=== PATIENT | female | born 1940 | race Caucasian/White ===

== ENCOUNTER 2016-11-20 07:45 | Inpatient (IN) | payer MEDICARE ==
[~2016-11-20] VITALS: Ht 149.9 cm; Wt 56.7 kg
--- NOTE | ~2016-11-20 | CN ---
PATIENT NAME:VICKY YATES MEDICAL RECORD: [id number] : 36 LOCATION:[id number] ADMIT DATE: 11/20/16 ACCOUNT: [id number] CONSULTING PHYSICIAN: BRAD BROWNLEE MD REFERRING PHYSICIAN: ANANDA YATES MD DATE OF CONSULTATION: 11/20/2016 CONSULT REQUESTING PHYSICIAN: Dr. Ananda Yates. REASON FOR CONSULTATION: Acute hypoxic respiratory failure, shortness of breath. HISTORY OF PRESENT ILLNESS: Ms. Yates is a 76-year-old very pleasant lady who is complaining of shortness of breath for the last few days. She has orthopnea and PND got worse last night. Pulse ox was 78% at home. The patient was brought into the ER showed pulmonary edema and significant leukocytosis. She denies any chest pain. She has cough with little whitish color sputum production. There is no wheezing. Denies any night sweats. She is also having dysuria and urinary tract infection symptom. PAST MEDICAL HISTORY: 1. Hypertension. 2. Type 2 diabetes mellitus. 3. History of spinal stenosis. 4. Reduction of root compression. PAST SURGICAL HISTORY: 1. Cholecystectomy. 2. times 2. 3. Ventral hernia repair. 4. Appendectomy. 5. T&A. 6. Carpal tunnel surgery. ALLERGIES: There are no known drug allergies. MEDICATIONS AT HOME: Metformin, glipizide, amlodipine, atenolol, lisinopril and ibuprofen. PERSONAL AND SOCIAL HISTORY: The patient still current everyday smoker. She is a nondrinker. FAMILY HISTORY: Significant for cardiovascular diseases and diabetes in her siblings. REVIEW OF SYSTEMS: GENERAL: The patient is running fever, fatigue and weakness. HEENT: There is some sinus congestion. RESPIRATORY: As in history of present illness. CARDIOVASCULAR: As in history of present illness. GASTROINTESTINAL: Negative. GENITOURINARY: Negative. Other reviews have been negative. PHSYICAL EXAMINATION: CONSULT REPORT [id number] VICKY YATES GENERAL: The patient is sitting in bed. She is not in acute distress. VITAL SIGNS: The pulse ox 88%. HEENT: Conjunctivae are pink. Sclerae nonicteric. NECK: Supple, no JVD. CHEST: Excursion is minimal on both sides. There are bilateral crackles. No wheezing. HEART: Rhythm regular, normal sound, no murmur. ABDOMEN: Soft, bowel sounds present. No hepatosplenomegaly. RECTAL: Deferred. EXTREMITIES: No cyanosis, no clubbing, no pedal edema. SKIN: Warm, normal turgor. CENTRAL NERVOUS SYSTEM: The patient is awake and alert. There is no obvious cranial nerve abnormality. The gait was not tested. CHEST RADIOGRAPH: There is increased interstitial marking bilaterally. OTHER LABORATORY DATA: CBC: WBC is 16.9, hemoglobin 15.2, hematocrit 42.6, platelet count 200. Chemistry shows sodium 126, potassium 3.2, BUN is 17, creatinine is 1, glucose 192. ABG: The pH was 7.40, pCO2 is 41.9, the pO2 is 49, bicarbonate 26.3. IMPRESSION: 1. Acute hypoxic respiratory failure. 2. Possible pneumonia bilaterally, consistent with community-acquired pneumonia. 3. Pulmonary edema consistent to congestive heart failure, possible diastolic dysfunction. 4. Hyponatremia. 5. Hypokalemia. 6. Urinary tract infection. 7. 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 RECOMMENDATIONS: 1. Start on Lasix IV. 2. Potassium replacement. 3. Continue Levaquin IV. 4. Check the proBNP, check the cardiac echo and get the cardiology consultation. Start her albuterol/ipratropium nebulizer, Brovana and budesonide nebulizer. 5. Supplemental oxygen as required. 6. Follow up labs and chest radiograph in the morning. Dr. Yates, thank you for involving me in the care of Ms. Yates. TRANSINT:[id number] Voice Confirmation ID: [id number] DOCUMENT ID: [id number] CONSULT REPORT [id number] VICKY YATES MUSHTAQ MD CC: ANANDA YATES MD [id number] DICTATION DATE: 11/20/161449 AML ANALYST: 11/20/162051 ADM IN [facility] [address] [place] [address]
[~2016-11-20 07:45] MED LIST: GLUCOPHAGE1000 MG PO; GLUCOTROL ER2.5 MG PO; IBUPROFEN600 MG PO; NORVASC10 MG PO; PRINIVIL20 MG PO; TENORMIN100 MG PO
[2016-11-20 08:20] LABS: BASOPHILS 0.1 % (0-2); EOSINOPHILS 3.5 % (0-7); HEMATOCRIT 42.6 % (36.0-48.0); HEMOGLOBIN 15.2 g/dL (12-16); IMMATURE GRANULOCYTES 0.4 % (0-5); LYMPHOCYTES 2.6 % (15-50); MCH 32.3 pg (26.0-34.0); MCHC 35.7 g/dL (31.0-37.0); MCV 90.6 fL (80.0-100.0); MEAN PLATELET VOLUME 9.9 fL (7.4-10.4); MONOCYTES 6.9 % (2-11); NEUTROPHILS 86.5 % (40-80); PLATELET COUNT 200 10x3/uL (130-400); RDW 12.9 % (11.5-14.5); WBC 16.9 10x3/uL (4.8-10.8)
[2016-11-20 08:44] LABS: ALBUMIN 3.5 g/dL (3.4-5.0); ALKALINE PHOSPHATASE 67 U/L (46-116); ALT (SGPT) 23 U/L (10-68); CALC OSMOLALITY 259 mosm/kg (275-300); CALCIUM 9.2 mg/dL (8.5-10.1); CARBON DIOXIDE 27.1 mmol/L (21.0-32.0); CHLORIDE - SERUM 88 mmol/L (98-107); POTASSIUM - SERUM 3.2 mmol/L (3.5-5.1); SODIUM 126 mmol/L (136-145); UREA NITROGEN 17 mg/dL (7-18); eGFR NON AFRICAN AMERICAN 57 mL/min (90-120)
[2016-11-20 08:46] LABS: GLUCOSE 192 mg/dL (74-106)
[2016-11-20 08:49] LABS: TROPONIN-I < 0.017 ng/mL (0.000-0.060)
--- NOTE | 2016-11-20 13:00 | NUR ---
PT WAS RECEIVED BY WHEELCHAIR FROM ANJELICA WEST RN. PT WAS TRANSFERRED TO BED, PT IS VERY FRIENDLY, ALERT AND ORIENTED. SHE STATES THAT SHE IS BEING ADMITTED DUE TO HER BEING VERY SHORT OF BREATH. STATES THAT SHE HAS ALSO HAD A UTI FOR ABOUT 7 DAYS AND HAS BEEN TAKING MACROBID. LUNGS- WITH SOME WHEEZING NOTED BILATERALLY. HEART- RRR. ABD- SOFT NONTENDER. EXT- NO EDEMA. RED SMOOTH PETICHIAE KIND OF RASH NOTED LE ONLY. BED IS LOW, SIDE RAILS UP X 2 AND CALL LIGHT IN REACH. SALINE LOCK NOTED R AC WHICH IS PATENT.
--- NOTE | 2016-11-20 15:15 | NUR ---
DR RUVALCABA IS HERE TO CONSULT. PT IS SITTING UP IN CHAIR. NEW ORDERS NOTED .
[2016-11-20 15:57] LABS: CREATINE KINASE 69 UL (21-215); PRO BNP 1542 pg/mL (0-450)
[2016-11-20 15:58] LABS: TROPONIN-I < 0.017 ng/mL (0.000-0.060)
--- NOTE | 2016-11-20 16:36 | NUR ---
I NOTIFIED DR RUVALCABA ABOUT HER ELEVATED PRO BNP BEING ELEVATED.
--- NOTE | 2016-11-20 17:30 | NUR ---
PT UP TO BATHROOM AND BACK TO SIT IN CHAIR. SHE TOOK HER O2 OFF TO DO THIS. PULSE OX CHECKED AFTER SHE PUT O2 BACK ON. O2 SAT 88-92. I CALLED ZONING ENGINEER, ASHER AND SHE IS GOING TO GET BEDSIDE COMMODE FOR PT.
--- NOTE | 2016-11-20 19:50 | NUR ---
ASSESSMENT PER FLOW SHEET, VS OBTAINED, SALINE LOCK IN RIGHT AC INTACT WITH NO REDNESS OR EDEMA, PT C/O BACK PAIN, INFORMED PT THAT I WILL ADM NORCO FOR PAIN, PT VERBALIZES UNDERSTANDING, PT INFORMS ME SHE WILL BE SLEEPING IN THE CHAIR BECAUSE IT IS EASIER FOR HER TO BREATHE SLEEPING IN THE RECLINER, PT REQUESTED AND SERVED FRESH H20
--- NOTE | 2016-11-20 20:04 | NUR ---
ADM TASIA PO PER MD ORDERS, SEE EMAR, PT DENIES FURTHER NEEDS
--- NOTE | 2016-11-20 20:39 | NUR ---
RESP IN ROOM ADM TREATMENT, PT DENIES NEEDS AT THIS TIME
[2016-11-20 20:43] VITALS: BP 153/53
--- NOTE | 2016-11-20 21:27 | NUR ---
PT EATING LIZZ, SON AT BEDSIDE, ADM 2100 MED PER MD ORDERS, SEE EMAR, INFORMED PT THAT I WILL BE BACK TO DO ADMITTING HISTORY AND MED REC WHEN SHE IS FINISHED EATING, PT VERBALIZES UNDERSTANDING, DENIES NEEDS AT THIS TIME
[2016-11-20 22:06] VITALS: BP 153/53; BMI 25.3
[2016-11-20] MEDS ORDERED: GLUCOPHAGE1000 MG PO (22:24)
[2016-11-20] MEDS ORDERED: GLUCOTROL ER2.5 MG PO (22:24)
[2016-11-20] MEDS ORDERED: PRINIVIL20 MG PO (22:25)
[2016-11-20] MEDS ORDERED: TENORMIN100 MG PO (22:25)
[2016-11-20] MEDS ORDERED: HYDROCHLOROTHIA25 MG PO (22:26)
[2016-11-20] MEDS ORDERED: NORVASC10 MG PO (22:26)
[2016-11-20] MEDS ORDERED: HYDROCODON-ACE1 EAC7 PO (22:27)
[2016-11-20] MEDS ORDERED: WELCHOL625 MG PO (22:31)
--- NOTE | 2016-11-21 00:33 | NUR ---
INFORMED PT AND DR RODRIGUEZ I WAS NOT GOING TO ADM BP MEDS DUE TO HER BP OF 129/49, PT STATES "OH, THANK YOU, I DON'T WANT IT TO BOTTOM OUT", ALSO INFORMED PT THAT I MAY NEED TO CHANGE HER ROOM BECAUSE TELEMETRY WILL NOT ENVELOPE MACHINE OPERATOR IN THAT ROOM, BUT JAYNA LU RN, SQL APPLICATION DEVELOPER WAS NOTIFIED AND IS SUPPOSE TO CALL ME BACK AND LET ME KNOW WHAT WE NEED TO DO, PT VERBALIZES UNDERSTANDING, DENIES NEEDS AT THIS TIME
[2016-11-21 00:35] VITALS: BP 129/49
--- NOTE | 2016-11-21 02:00 | NUR ---
PT UP IN CHAIR, TELEMETRY PLACED, PT DENIES NEEDS AT THIS TIME
--- NOTE | 2016-11-21 02:23 | NUR ---
PT APPLE PACKING HEADER LIGHT, ADM TASIA PO PER MD ORDERS, SEE EMAR, PT DENIES FURTHER NEEDS AT THIS TIME, DR RODRIGUEZ ASLEEP ON COUCH
--- NOTE | 2016-11-21 03:16 | NUR ---
TELEMETRY REPORTS PT'S HR IS 64 AND SINUS RHYTHM
--- NOTE | 2016-11-21 03:35 | NUR ---
PT RESTING IN RECLINER WITH EYES CLOSED, RESP QUIET, NO DISTRESS NOTED, LEFT UNDISTURBED AT THIS TIME, SON ASLEEP ON COUCH
[2016-11-21 05:35] VITALS: BP 117/46
[2016-11-21 06:04] LABS: BASOPHILS 0.2 % (0-2); EOSINOPHILS 7.7 % (0-7); HEMATOCRIT 38.9 % (36.0-48.0); HEMOGLOBIN 13.5 g/dL (12-16); IMMATURE GRANULOCYTES 0.3 % (0-5); LYMPHOCYTES 9.4 % (15-50); MCH 31.8 pg (26.0-34.0); MCHC 34.7 g/dL (31.0-37.0); MCV 91.5 fL (80.0-100.0); MEAN PLATELET VOLUME 10.4 fL (7.4-10.4); MONOCYTES 9.2 % (2-11); NEUTROPHILS 73.2 % (40-80); PLATELET COUNT 179 10x3/uL (130-400); RBC 4.25 10x6/uL (4.00-5.40); RDW 13.2 % (11.5-14.5)
[2016-11-21 06:12] LABS: WBC 9.5 10x3/uL (4.8-10.8)
[2016-11-21 06:25] LABS: CALCIUM 8.6 mg/dL (8.5-10.1); CARBON DIOXIDE 31.2 mmol/L (21.0-32.0); CREATININE - SERUM 1.1 mg/dL (0.6-1.3); MAGNESIUM - SERUM 1.6 mg/dL (1.8-2.4)
--- NOTE | 2016-11-21 06:30 | NUR ---
PT RECEIVING RESP TREATMENT AT THIS TIME, SALINE LOCK FLUSHED, ADM LASIX SIVP PER MD ORDERS, SALINE LOCK FLUSHED, PT DENIES NEEDS AT THIS TIME
[2016-11-21 06:31] LABS: ANION GAP 10.8 mmol/L (8-16)
--- NOTE | 2016-11-21 07:00 | NUR ---
SHIFT REPORT TO CECY MATHEW RN
[2016-11-21 07:30] VITALS: BP 128/43
--- NOTE | 2016-11-21 07:30 | NUR ---
PT IS RECEIVED SITTING UP IN CHAIR. PT STATES THAT SHE SLEPT IN CHAIR LAST NIGHT. STATES THAT SHE CANNOT LIE DOWN DUE TO HER SOB. VSS. SHE GETS UP AND WALKS TO BATHROOM INSTEAD OF USING BEDSIDE COMMODE. SHE GETS SOB WITH WALKING TO BATHROOM. BUT TOLERATES. GEN- AWAKE ANDD ALERT. LUNGS- WITH CRACKLES NOTED UPPER LOBES. HEART- RRR. ABD- SOFT , NT BS+. EXT SHE HAS A RED IRRITATED RASH ON LOWER LEGS. IT DOES NOT ITCH OR HURT. THIS IS THE ONLY PLACE THE RASH IS NOTED. BED IS LOW. SIDE RAILS UP X 2 AND CALL LIGHT IN REACH.
--- NOTE | 2016-11-21 07:50 | NUR ---
PT REQUESTED PAIN MED FOR HER BACK. SHE STATES HER PAIN IS A 9/10. GAVE HER NORCO 5/325 MG
--- NOTE | 2016-11-21 08:51 | NUR ---
PT IS SITTING UP IN CHAIR. SHE OFFERS NO COMPLAINTS. CALL LIGHT IN REACH.
--- NOTE | 2016-11-21 10:45 | NUR ---
PT WAS TAKEN TO X- RAY FOR A CHEST XRAY. SHE WAS TAKEN BY WHEELCHAIR.
--- NOTE | 2016-11-21 11:15 | NUR ---
DR RUVALCABA IS HERE TO SEE PT. I TOLD HIM THAT SHE WAS IN XRAY. HE ASKED IF SHE HAS HAD HER ECHO YET AND I TOLD HIM NO. HE STATES THAT HE WILL WAIT ON RESULTS OF THIS AND THEN COME BACK TO SEE HER.
[2016-11-21 12:05] VITALS: BP 129/43
--- NOTE | 2016-11-21 12:05 | NUR ---
PT AWAKE AND ALERT AND SITTING IN CHAIR AT BEDSIDE GETTING READY TO EAT LUNCH. SKIN W/D. COLOR PINK. PULSE OX 96% ON 9L PER NC WITH OXMISER. PT HAS NO CONCERNS AT THIS TIME.
--- NOTE | 2016-11-21 12:30 | NUR ---
KATHRINE APPIAH LOOKING FOR IV SITE ON PT.
[2016-11-21 13:50] VITALS: Ht 149.9 cm; Wt 56.7 kg
--- NOTE | 2016-11-21 15:40 | NUR ---
PT IS SITTING UP IN CHAIR. LASIX AND PAIN MED GIVEN. PT STATES HER PAIN IS A 9 IN HER BACK. SHE IS NOW GOING TO REST IN CHAIR FOR A WHILE. CALL LIGHT IN REACH.
[2016-11-21 16:10] VITALS: BP 151/53
--- NOTE | 2016-11-21 16:59 | NUR ---
DR BROWNLEE IS HERE TO SEE PT. PT STILL HAS RASH THAT APPEARS WORSE TO ME TODAY ON LOWER LEGS ONLY. HE ORDERED HER METHYLPREDNISOLONE 40 MG IV Q 8H.
--- NOTE | 2016-11-21 19:30 | NUR ---
PM ROUNDS MADE, PT SITTING UP IN RECLINER, INFORMED PT THAT I WILL BE IN SHORTLY TO DO ASSESSMENT, PT VERBALIZES UNDERSTANDING, DENIES NEEDS AT THIS TIME
--- NOTE | 2016-11-21 19:54 | NUR ---
RESP IN ROOM FOR TREATMENT
[2016-11-21 20:42] VITALS: BP 143/71
--- NOTE | 2016-11-21 20:42 | NUR ---
ASSESSMENT PER FLOW SHEET, VS OBTAINED, SALINE LOCK IN LEFT HAND INTACT WITH NO REDNESS OR EDEMA, FLUSHED WITH NO DIFFICULTY, ADM SOLUMEDROL SIVP OVER 4 MINUTES, SALINE LOCK FLUSHED, TELEMETRY IN PLACE, PT REPORTS BM, FLATUS, AND VOIDING WITH NO FREQUENCY OR URGENCY, PT RATES BACK PAIN 6-10/07, PT STATES "AFTER I RECEIVE THIS STERIOD, MY BACK WILL FEEL BETTER", PT DENIES FURTHER NEEDS, DR RODRIGUEZ IN ROOM
--- NOTE | 2016-11-21 20:42 | NUR ---
LATE ENTRY: DR RODRIGUEZ ORDERS TO TURN PT'S O2 DOWN TO 8L AND THEN CHECK O2 SAT IN 1 HOUR
--- NOTE | 2016-11-21 21:14 | NUR ---
ADM 2100 MED PER MD ORDERS, SEE EMAR, PT DENIES NEEDS AT THIS TIME
--- NOTE | 2016-11-21 21:25 | NUR ---
DR RODRIGUEZ LEAVING FOR THE EVENING, REPORTS THAT HE TURNED PT'S O2 DOWN TO 7L AND REQUESTS THAT I CHECK O2 SAT IN 1 HOUR, AND IF THE O2 SAT IS STILL GOOD, I CAN CONTINUE TO LOWER HER O2 DOWN, AND IF HER O2 SAT GETS BELOW 90, TO CALL HIM
--- NOTE | 2016-11-21 22:42 | NUR ---
LATE ENTRY: TURNED O2 DOWN TO 6L
--- NOTE | 2016-11-21 22:42 | NUR ---
PT AWAKE, SALINE LOCK FLUSHED, ADM LASIX SIVP OVER 3 MINUTES, SALINE LOCK FLUSHED, O2 SAT ON 7L OXYMIZER 98%, INFORMED PT I WILL RECHECK O2 SAT WITH VS, PT C/O BACK PAIN, ADM NORCO PO PER MD ORDERS, SEE EMAR, PT REQUESTED AND SERVED JELLO, PUDDING, AND FRESH H20, PT DENIES FURTHER NEEDS, PT CONTINUES SITTING IN RECLINER
[2016-11-22 00:32] VITALS: BP 119/49
--- NOTE | 2016-11-22 00:32 | NUR ---
PT RESTING IN RECLINER WITH EYES CLOSED, AROUSES TO SOFT VERBAL STIMUALTION, VS OBTAINED, O2 SAT 95-96% ON 6L OXYMIZER, INFORMED PT THAT I WILL LEAVE THE O2 AT 6L AT THIS TIME, PT STATES "THAT'S PROBABLY A GOOD IDEA", PT DENIES NEEDS OR PAIN AT THIS TIME
--- NOTE | 2016-11-22 02:02 | NUR ---
PT UP IN ROOM, STATES "I THINK I'M GOING TO TRY AND SLEEP IN THE BED TONIGHT", PT DENIES NEEDS OR PAIN AT THIS TIME
[2016-11-22 03:34] VITALS: BP 121/58
--- NOTE | 2016-11-22 03:34 | NUR ---
PT AWAKE, VS OBTAINED, SALINE LOCK FLUSHED, ADM SOLUMEDROL SIVP OVER 4 MINUTES, SALINE LOCK FLUSHED, PT DENIES NEEDS OR PAIN AT THIS TIME
--- NOTE | 2016-11-22 06:29 | NUR ---
PT AWAKE, LAB LYDIA AM BLOOD WORK, WILL SEE WHAT GLUCOSE LEVEL IS FROM BLOOD DRAW, SALINE LOCK FLUSHED, ADM LASIX SIVP OVER 3-4 MINUTES, SALINE LOCK FLUSHED, PT DENIES NEEDS OR PAIN AT THIS TIME
--- NOTE | 2016-11-22 06:55 | NUR ---
SHIFT REPORT TO CECY MATHEW RN
[2016-11-22 07:22] LABS: HEMATOCRIT 41.1 % (36.0-48.0); HEMOGLOBIN 14.2 g/dL (12-16); LYMPHOCYTES 8.8 % (15-50); MCH 31.5 pg (26.0-34.0); MCHC 34.5 g/dL (31.0-37.0); MCV 91.1 fL (80.0-100.0); MEAN PLATELET VOLUME 10.2 fL (7.4-10.4); NEUTROPHILS 89.4 % (40-80); PLATELET COUNT 182 10x3/uL (130-400); RBC 4.51 10x6/uL (4.00-5.40); RDW 13.2 % (11.5-14.5)
[2016-11-22 07:23] LABS: WBC 6.1 10x3/uL (4.8-10.8)
[2016-11-22 07:38] LABS: ANION GAP 12.9 mmol/L (8-16); CALCIUM 8.7 mg/dL (8.5-10.1); CARBON DIOXIDE 28.9 mmol/L (21.0-32.0); MAGNESIUM - SERUM 1.7 mg/dL (1.8-2.4)
[2016-11-22 07:39] LABS: POTASSIUM - SERUM 3.8 mmol/L (3.5-5.1)
[2016-11-22 08:31] VITALS: BP 151/70
--- NOTE | 2016-11-22 09:00 | NUR ---
PT TO X-RAY BY WHEELCHAIR WITH PORTABLE 02 AT 2 L.
--- NOTE | 2016-11-22 09:46 | NUR ---
* Is the patient Alert and Oriented? Yes 0 * How many steps to enter\exit or inside your home? 1 0 * PCP Dr. Yates 0 * Pharmacy [facility] on [address] 0 * Preadmission Environment Home Alone 0 * ADLs Independent 0 * Equipment Rolling Walker 0 * List name and contact numbers for known caregivers / representatives who currently or will assist patient after discharge: Son - Ananda Yates [phone] 0 * Additional services required to return to the preadmission environment? No 0 * Can the patient safely return to the preadmission environment? Yes 0 * Has this patient been hospitalized within the prior 30 days at any hospital? No Patient Name: VICKY YATES Admission Status: ER Accout number: [id number] Admission Date: 11-20-2016 : 1940 Admission Diagnosis: Attending: ANANDA YATES Current LOS: 2 Anticipated DC Date: 11-24-2016 Planned Disposition: Home Primary Insurance: MEDICARE A & B Discharge Planning Comments: CM met with patient to assess dc plans/needs. Patient states she lives alone and is independent with all ADL's. 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 Her son is Honey Yates. She states she has a seated rolling walker, nebulizer & pulse ox. She states she was not using her nebulizer. At al, she will return home. She is not interested in home health services at this time. Case management will follow and assist as needed. Paper Coating Machine Operator: Carina Mann
--- NOTE | 2016-11-22 11:02 | NUR ---
LEVAQUIN IV D'CD AND ORDERED ORAL LEVAQUIN. ORDER PER DR RODRIGUEZ. ORAL LEVAQUIN AND FLORAGEN GIVEN. PT IS SITTING UP IN BED. I ORDERED HER SOME YOGURT FOR HER REQUESTED.
--- NOTE | 2016-11-22 13:00 | NUR ---
PT WAS CLEANED AND DRESSED. SHE WAS INCONTINENT OF URINE. SHE WAS WASHED. LINENS CHANGED AND CALMOSEPTINE APPLIED. SHE HAD A SMALL BM. BED IS LOW, SIDE RAILS UP X 3 AND CALL LIGHT IN REACH.
--- NOTE | 2016-11-22 17:27 | NUR ---
PT [id number] TO 2120 BY WHEELCHAIR
--- NOTE | 2016-11-22 17:47 | NUR ---
RECIVED TO ROOM 2121.
[2016-11-22 19:00] VITALS: BP 142/47
--- NOTE | 2016-11-22 20:16 | NUR ---
INITIAL ROUNDS COMPLETED AT 1920 RHS. PT DENIED AN DISCOMFORT. ASSESSMENT COMPETED AT 2000 HRS. O2 4LNC. LUNGS DIMINISHED IN BASES BILAT. SKIN BRIGHT RED FROM BILAT KNEES DOWN. AVILA. PALPABLE PERIPHERAL PULSES. PT UP AD ADELA. WILL CONTINUE TO MONITOR. SR UP X2, CALL LIGHT WITHIN REACH.
--- NOTE | 2016-11-22 21:57 | NUR ---
PM MEDS GIVEN. PT SITTING IN RECLNER. DENIES ANY DISCOMFORT. WILL CONTINUE TO MONITOR.
--- NOTE | 2016-11-22 23:09 | NUR ---
NORCO PO GIVEN FOR C/O CHRONIC BACK PAIN. WILL CONTINUE TO MONITOR.
[2016-11-23] VITALS: BP 131/56
--- NOTE | 2016-11-23 00:27 | NUR ---
PT STATEDBACK PIAN AROUND 5-6 AT PRESENT. PT SITTING UP IN THE RECLINER. NO DISTRESS NOTED. WILL CONTINUE TO MONITOR.
--- NOTE | 2016-11-23 02:07 | NUR ---
PT STATED AT 2400 VS THAT SHE IS REFUSING 0400 VS. PT CURRENTLY RESTING WITH EYES CLOSED. RESP EVEN AND REGULAR. SR UP X2, CALL LIGHT WITHIN REACH.
--- NOTE | 2016-11-23 04:30 | NUR ---
PT RESTING WITH EYES CLOSED. RESP EVEN AND REGULAR. SR UP X2, CALL LIGHT WITHIN REACH.
[2016-11-23 05:53] LABS: BASOPHILS 0.2 % (0-2); EOSINOPHILS 3.5 % (0-7); HEMATOCRIT 38.2 % (36.0-48.0); HEMOGLOBIN 12.8 g/dL (12-16); IMMATURE GRANULOCYTES 0.5 % (0-5); MCH 31.1 pg (26.0-34.0); MCHC 33.5 g/dL (31.0-37.0); MCV 92.9 fL (80.0-100.0); MEAN PLATELET VOLUME 10.1 fL (7.4-10.4); MONOCYTES 8.5 % (2-11); NEUTROPHILS 73.3 % (40-80); RBC 4.11 10x6/uL (4.00-5.40)
[2016-11-23 05:54] LABS: PLATELET COUNT 219 10x3/uL (130-400); WBC 12.5 10x3/uL (4.8-10.8)
[2016-11-23 05:59] LABS: ANION GAP 8.7 mmol/L (8-16); CALCIUM 8.9 mg/dL (8.5-10.1); CARBON DIOXIDE 30.8 mmol/L (21.0-32.0); MAGNESIUM - SERUM 1.7 mg/dL (1.8-2.4); POTASSIUM - SERUM 3.5 mmol/L (3.5-5.1)
--- NOTE | 2016-11-23 07:09 | NUR ---
VSS THROUGHOUT NIGHT. PT STATED NORCO HELPED BACK PAIN. AM K+ 3.5. KCL 20MEQ PO GIVEN PER ORDERS. NEEDS MET; WILL CONTINUE TO MONITOR.
[2016-11-23 08:39] VITALS: BP 152/54
--- NOTE | 2016-11-23 08:40 | NUR ---
PT SITTING UP TO CHAIR EATING BREAKFAST DENIES ANY NEEDS
--- NOTE | 2016-11-23 09:29 | NUR ---
ASSESSMENT COMPLETED. DENIES ANY NEEDS. UP IN BEDSIDE CHAIR. NO TELEMERTY, NO IV. O2 AT 4 L/M PER NC. UP AB ADELA. SCDS OFF AT PRESENT TIME WILL MONITOR
[2016-11-23 13:00] VITALS: BP 131/55
[2016-11-23 17:31] VITALS: BP 120/55
--- NOTE | 2016-11-23 18:27 | NUR ---
UP IN BEDSIDE CHAIR, C/O PAIN,PAIN MED GIVEN. NO OTHER NEEDS VOICED
[2016-11-23 19:00] VITALS: BP 175/56
--- NOTE | 2016-11-23 21:17 | NUR ---
SPO2 AT REST 91% WITH HR 80. AMBULATING SP02 86% WITH HR 82.
--- NOTE | 2016-11-23 22:23 | NUR ---
INITIAL ROUNDS COMPLETED AT 1915 HRS. PT WATCHING TV. NO DISTRESS NOTED. ASSESSMENT COMPLETED AT 202 5 HRS. VSS. LUNGS DIMINISHED IN BASES BILAT. RED RASH NOTED TO BILAT LOWER EXTREMITIES. PT AMBULATED WITHOUT O2 PER RT WITH O2 SAT 86%. PT PLACED ON O2 2NC AFTER. PM MEDS GIVEN. PT CURRENTLY WATCHING TV IN BED. WILL CONTINUE TO MONITOR. SR UP X2, CALL LIGHT WITHIN REACH.
[2016-11-24] VITALS: BP 115/52
--- NOTE | 2016-11-24 00:41 | NUR ---
PT AWAKE, NO DISTRESS NOTED. WILL CONTINUE TO MONITOR.
--- NOTE | 2016-11-24 02:10 | NUR ---
PT RESTING WITH EYES CLOSED. IN ADRIANO RECLINER. RESP EVEN AND REGULAR. CALL LIGHT WITHIN REACH.
[2016-11-24 04:00] VITALS: BP 120/51
[2016-11-24 04:53] LABS: BASOPHILS 0.5 % (0-2); EOSINOPHILS 17.9 % (0-7); HEMATOCRIT 43.1 % (36.0-48.0); HEMOGLOBIN 14.8 g/dL (12-16); IMMATURE GRANULOCYTES 0.5 % (0-5); LYMPHOCYTES 24.5 % (15-50); MCH 32.2 pg (26.0-34.0); MCHC 34.3 g/dL (31.0-37.0); MCV 93.7 fL (80.0-100.0); MEAN PLATELET VOLUME 9.6 fL (7.4-10.4); MONOCYTES 8.4 % (2-11); NEUTROPHILS 48.2 % (40-80); PLATELET COUNT 230 10x3/uL (130-400); RDW 13.2 % (11.5-14.5); WBC 9.5 10x3/uL (4.8-10.8)
--- NOTE | 2016-11-24 04:55 | NUR ---
PT RESTING WITH EYES CLOSED. RESP EVEN AND REGULAR. CALL LIGHT WITHIN REACH.
[2016-11-24 05:07] LABS: CARBON DIOXIDE 31.5 mmol/L (21.0-32.0); CREATININE - SERUM 1.1 mg/dL (0.6-1.3); MAGNESIUM - SERUM 1.5 mg/dL (1.8-2.4); POTASSIUM - SERUM 3.5 mmol/L (3.5-5.1)
--- NOTE | 2016-11-24 06:26 | NUR ---
VSS THROUGHOUT NIGHT. PT STATED NORCO HELPED CONTROL PAIN. AM K+ 3.5. KCL PO GIVEN PER ELECTROLYTE PROTOCOL. NEEDS MET; WILL CONTINUE TO MONITOR.
--- NOTE | 2016-11-24 07:43 | NUR ---
ASSESSMENT COMPLETED. UP IN CHAIR. DENIES ANY NEEDS. 02 AT 2 L/M PER NC. AWAKE AND ALERT. UP AB ADELA. WILL MONITOR
[2016-11-24 07:58] VITALS: BP 123/55
[2016-11-24 11:54] VITALS: BP 129/53
--- NOTE | 2016-11-24 14:48 | NUR ---
UP IN HALLWAY, DENIES ANY SHORTNESS OF BREAT, WILL MONITOR
[2016-11-24 16:12] VITALS: BP 128/56
[2016-11-24 20:00] VITALS: BP 146/61
--- NOTE | 2016-11-24 20:00 | NUR ---
PT RESTING IN BED AND WATCHING TV. ALERT/ORIENED. PLAN OF CARE REVIEWED. NO IV ACCESS. NO TELMETRY. SUPPOSED TO GO HOME IN AM IF O2 IS SET UP. SEE ASSESSMENT AND CPOC.
[2016-11-25 04:00] VITALS: BP 134/58
--- NOTE | 2016-11-25 05:14 | NUR ---
PT HAS SLEPT THIS NIGHT. SHE DID REFUSE THE LASIX SCHEDULED IN THE MIDDLE OF THE NIGHT.
[2016-11-25 06:28] LABS: BASOPHILS 0.5 % (0-2); EOSINOPHILS 19.2 % (0-7); HEMATOCRIT 41.5 % (36.0-48.0); IMMATURE GRANULOCYTES 1.1 % (0-5); LYMPHOCYTES 22.1 % (15-50); MCH 31.5 pg (26.0-34.0); MCHC 33.7 g/dL (31.0-37.0); MCV 93.5 fL (80.0-100.0); MONOCYTES 8.5 % (2-11); NEUTROPHILS 48.6 % (40-80); PLATELET COUNT 252 10x3/uL (130-400); RBC 4.44 10x6/uL (4.00-5.40); RDW 13.2 % (11.5-14.5)
[2016-11-25 06:57] LABS: ANION GAP 13.1 mmol/L (8-16); CALCIUM 8.6 mg/dL (8.5-10.1); CARBON DIOXIDE 27.7 mmol/L (21.0-32.0); CREATININE - SERUM 1.1 mg/dL (0.6-1.3); MAGNESIUM - SERUM 1.4 mg/dL (1.8-2.4); POTASSIUM - SERUM 3.8 mmol/L (3.5-5.1)
--- NOTE | 2016-11-25 07:24 | NUR ---
ASSESSMENT DONE. DENIES NEEDS.
[2016-11-25 08:00] VITALS: BP 141/85
--- NOTE | 2016-11-25 10:02 | NUR ---
UP IN CHAIR WITH CALL LIGHT IN REACH. RESP UL ON . WILL CONT. PLAN OF CARE.
[2016-11-25 12:00] VITALS: BP 147/63
--- NOTE | 2016-11-25 13:14 | NUR ---
Patient Name: VICKY RODRIGUEZ Encounter No: [id number] : 1940 Primary Insurance: MEDICARE A & B Anticipated DC Date: 11-24-2016 Planned Disposition: Home DCP follow-up note: CM RECEIVED DISCHARGE ORDER, MET WITH PT IN ROOM TO DISCUSS DISCHARGE PLAN AND NEEDS. PT REPORTS SHE WOULD LIKE HER OXYGEN FROM [facility] IT IS CLOSE TO HER HOME. CM EXPLAINED NEED FOR NEW OXYGEN TESTING. CM DISCUSSED AVAILABILITY OF REHAB AND HOME HEALTH, PT DENIES NEED OF BOTH, WILL BE GOING HOME ALONE, PT'S SON WILL PICK HER UP AFTER HE GETS OFF WORK AFTER NOON TODAY. IMPORTANT MESSAGE FROM MED[employer] PROVIDED AND EXPLAINED. CM RECEIVED OXYGEN TESTING, FAXED DOCUMENTS TO [facility] AT [phone]; CM CALLED [facility], , NOTIFIED LUCIA OF REFERRAL. CM RECEIVED CALL FROM LUCIA WHO ADVISED THAT CHART DOCUMENTATION IS NOT ENOUGH, MEDICARE REQUIRES FACE TO FACE DR'S NOTE FROM TODAY WILL NEED TO HAVE PT'S OXYGEN TESTING IN IT ALONG WITH MENTION OF NEED OF HOME OXYGEN FOR DIAGNOSIS OF COPD. CM NOTIFIED DR. RODRIGUEZ IN CLINIC. DR. RODRIGUEZ ENTERED REQUESTED DOCUMENTATION AND ORDER FOR OVERNIGHT PULSE OXIMETRY TESTING. CM FAXED DOCUMENTATION AND ORDER TO [facility] AT [phone]. [facility] DELIVERING PORTABLE OXYGEN TO PT'S ROOM FOR DISCHARGE HOME AND WILL ARRANGE OVERNIGHT PULSE OXIMETRY TESTING WITH PT. PT NOTIFIED, IN AGREEMENT WITH DISCHARGE PLAN. Justin Mcduffie, CASE MANAGEMENT
[2016-11-25] MEDS ORDERED: LEVAQUIN750 MG PO (14:16)
[2016-11-25] MEDS ORDERED: IPRAT-ALBUT 0.5-3 ML UPD (14:19)
[2016-11-25] MEDS ORDERED: PULMICORT0.5 MG/21 INH (14:23)
[2016-11-25] MEDS ORDERED: BROVANA15 MCG/2 M INH (14:23)
--- NOTE | 2016-11-25 14:56 | NUR ---
DC GIVEN TO PT
--- NOTE | 2016-11-25 14:59 | NUR ---
DC HOME PER PERSONAL CAR
--- NOTE | 2016-11-25 15:09 | NUR ---
Patient Name: VICKY RODRIGUEZ Admission Status: ER Accout number: [id number] Admission Date: 11-20-2016 : 1940 Admission Diagnosis: Attending: DARWIN RODRIGUEZ Current LOS: 5 Anticipated DC Date: 11-25-2016 Planned Disposition: Home Primary Insurance: MEDICARE A & B LATE ENTRY: Discharge Planning Comments: CM RECEIVED REQUEST TO SEE PT IN ROOM. CM MET WITH PT WHO IS IN ROOM WITH HER PORTABLE OXYGEN FROM [facility]. PT REPORTS THAT SHE IS UNHAPPY WITH [facility]. THEY DELIVERED AND ETANK AND SHOWER CHAIR AND WHEN SHE ASKED FOR MORE PORTABLE OXGYEN SHE WAS TOLD THAT NO MORE WOULD BE DELIVERED. PT ASKED IF THAT WAS STANDARD, CM STATED HE WOULD CALL AND CHECK. CM CALLED [facility] FROM PT'S ROOM, , SPOKE TO LUCIA. CM ASKED ABOUT WHAT OTHER TANKS PT WOULD BE PROVIDED. LUCIA INFORMED CM THAT PT WOULD ONLY BE PROVIDED THE ONE ETANK AND WHEN IT RUNS OUT SHE IS TO COME TO [facility] FOR A REFILL. CM ASKED ABOUT HAVING AT LEAST ONE MORE FOR EMERGENCY USE, LUCIA AGAIN REPEATED THAT UNTIL PT HAS THE OVERNIGHT AND MIGHT QUALIFY FOR A HOME CONCENTRATOR, THAT IS ALL THAT WOULD BE PROVIDED, THE ONE ETANK. PT REPORTS THAT IS NOT ACCEPTABLE TO HER AND WOULD LIKE FOR CM TO ARRANGE HER WITH SOMEONE ELSE BESIDES [facility]. PT REPORTS SHE WILL GO HOME WITH [facility] ETANK AND TELL THEM TO COME GET IT ONCE ANOTHER COMPANY COMES OUT WITH REPLACEMENT. CM DISCUSSED AVAILABLE COMPANIES, PT WOULD LIKE TO TRY [facility] ON [address]. CM CALLED [facility] [place], , EXPLAINED ABOVE, MARICRUZ REPORTED THAT [facility] [place] WILL DELIVER AND ETANK WELL SMALL PORTABLES TO PT'S HOME UNTIL OVERNIGHT PULSE OXIMETERY CAN BE DONE; [facility] [place] CAN DO THE OVERNIGHT PULSE OXIMETRY TESTING. CM FAXED ENTIRE ORDER WITH DOCUMENTATION TO [facility] [place] AT [phone]. PT NOTIFIED. PT IN AGREEMENT WITH DISCHARGE PLAN AND WILL GO HOME WITH [facility] PORTABLE AND CALL [facility] TO CODING SUPPORT SPECIALIST THE ETANK ONCE [facility] MAKES HOME DELIVERY. DR. RODRIGUEZ NOTIFIED. JEANNIE MANDEL, CASE MANAGEMENT
== END 2016-11-25 15:00 | disposition home or self-care (01) | DRG 189 ==
LOC: D.ER 07:45 → D.SDCHOLD 09:52 → D.LD 09:52 → D.SDCHOLD 11-21 21:14 → D.LD 11-21 21:15 → D.M2 11-22 17:45
PROVIDERS: Emergency Medicine; Internal Medicine Pulmonary Disease; ADMIT Obstetrics & Gynecology
DX: J96.01 Acute respiratory failure with hypoxia (principal); J18.9 Pneumonia, unspecified organism; J44.0 Chronic obstructive pulmonary disease with (acute) lower respiratory infection; I50.30 Unspecified diastolic (congestive) heart failure; E87.1 Hypo-osmolality and hyponatremia; N39.0 Urinary tract infection, site not specified; J44.1 Chronic obstructive pulmonary disease with (acute) exacerbation; I11.0 Hypertensive heart disease with heart failure; M41.9 Scoliosis, unspecified; L27.0 Generalized skin eruption due to drugs and medicaments taken internally; T37.8X5A Adverse effect of other specified systemic anti-infectives and antiparasitics, initial encounter; E87.6 Hypokalemia; E11.9 Type 2 diabetes mellitus without complications

== ENCOUNTER → 2017-03-04 08:25 | Outpatient (CLI) | payer MEDICARE ==
[2016-11-21 13:50] VITALS: BMI 25.2
[~2017-03-04 08:25] MED LIST changes: +BROVANA15 MCG/2 M INH; +HYDROCHLOROTHIA25 MG PO; +HYDROCODON-ACE1 EAC7 PO; +IPRAT-ALBUT 0.5-3 ML UPD; +LEVAQUIN750 MG PO; +PULMICORT0.5 MG/21 INH; +WELCHOL625 MG PO
[2017-03-04 10:30] LABS: BASOPHILS 0.5 % (0-2); EOSINOPHILS 2.9 % (0-7); HEMATOCRIT 39.9 % (36.0-48.0); HEMOGLOBIN 13.9 g/dL (12-16); IMMATURE GRANULOCYTES 0.3 % (0-5); MCH 31.9 pg (26.0-34.0); MCHC 34.8 g/dL (31.0-37.0); MCV 91.5 fL (80.0-100.0); MEAN PLATELET VOLUME 9.2 fL (7.4-10.4); MONOCYTES 7.6 % (2-11); NEUTROPHILS 70.7 % (40-80); PLATELET COUNT 273 10x3/uL (130-400); RBC 4.36 10x6/uL (4.00-5.40); RDW 13.4 % (11.5-14.5); WBC 9.1 10x3/uL (4.8-10.8)
[2017-03-04 10:46] LABS: ANION GAP 11.9 mmol/L (8-16); CALCIUM 9.3 mg/dL (8.5-10.1); CARBON DIOXIDE 27.5 mmol/L (21.0-32.0); CREATININE - SERUM 1.1 mg/dL (0.6-1.3); POTASSIUM - SERUM 3.4 mmol/L (3.5-5.1)
== END | disposition home or self-care (01) ==
LOC: D.RT 08:25
PROVIDERS: Internal Medicine Pulmonary Disease
DX: J44.9 Chronic obstructive pulmonary disease, unspecified (principal)

== ENCOUNTER → 2017-06-27 11:24 | Outpatient (CLI) | payer MEDICARE ==
[2016-11-21 13:50] VITALS: BMI 25.2
== END | disposition home or self-care (01) ==
LOC: D.RAD 11:24
DX: J18.9 Pneumonia, unspecified organism (principal)

== ENCOUNTER → 2017-09-26 13:54 | Outpatient (CLI) | payer MEDICARE ==
[2016-11-21 13:50] VITALS: BMI 25.2
== END | disposition home or self-care (01) ==
LOC: D.RAD 13:54
DX: J44.9 Chronic obstructive pulmonary disease, unspecified (principal)

== ENCOUNTER → 2017-10-09 18:49 | Outpatient (CLI) | payer MEDICARE ==
[2016-11-21 13:50] VITALS: BMI 25.2
== END | disposition home or self-care (01) ==
LOC: D.LABREF 18:49
DX: M17.11 Unilateral primary osteoarthritis, right knee (principal); Z11.8 Encounter for screening for other infectious and parasitic diseases

== ENCOUNTER → 2018-01-23 14:51 | Outpatient (CLI) | payer MEDICARE ==
[2016-11-21 13:50] VITALS: BMI 25.2
== END | disposition home or self-care (01) ==
LOC: D.LABREF 14:51
PROVIDERS: Clinical Nurse Specialist Family Health
DX: E11.9 Type 2 diabetes mellitus without complications (principal)

== ENCOUNTER 2018-01-28 10:00 | Inpatient (IN) | payer MEDICARE ==
[~2018-01-28] VITALS: Ht 152.4 cm; Wt 68.2 kg
--- NOTE | ~2018-01-28 | MORECARE ---
CASE MANAGEMENT DISCHARGE SUMMARY PATIENT: VICKY RODRIGUEZ UNIT: [id number] ADM DATE: 02/05/18 AGE: 77 : 38 SEX: F ROOM/BED: D.2216 AUTHOR: TREVIN KAUFMAN PHYSICIAN: REFERRING PHYSICIAN: GARCAI AMAYA MD DATE OF SERVICE: 02/12/18 Discharge Plan Patient Name: VICKY RODRIUGEZ Facility: [facility]:[place] : 1940 Planned Disposition: Inpatient Rehab Anticipated Discharge Date: Discharge Date: 02/09/2018 Expected LOS: 0 Initial Reviewer: [email or web address] Initial Review Date: 02/05/2018 Generated: 02/12/18 10:24 am Comments DCP- Discharge Planning Updated by [email or web address]: Rachana Hudson on 02/09/18 11:[address] Patient Name: VICKY RODRIGUEZ Encounter No: [id number] : 1940 Primary Insurance: MEDICARE A & B Anticipated DC Date: Planned Disposition: Inpatient Rehab External Planned Provider: : DCP follow-up note: Patient and family in agreement with discharge plan. IMM served and explained. She will be discharging to inpatient rehab today. No changes to plan. Case management will follow and assist as needed. Rachana Hudson DCP- Discharge Planning Updated by [id number]: Rachana Hudson on 02/06/18 1:[address] Patient Name: VICKY RODRIGUEZ Admission Status: Elective Accout number: [id number] Admission Date: 02-05-2018 : 1940 Admission Diagnosis: Attending: GARCIA AMAYA Current LOS: 1 Anticipated DC Date: Planned Disposition: Inpatient Rehab Primary Insurance: MEDICARE A & B Discharge Planning Comments: CM MET WITH PATIENT TO ASSESS DISCHARGE PLANNING NEEDS. PATIENT LIVES INDEPENDENTLY AT HOME ALONE WHERE SHE PLANS ON RETURNING TO AFTER REHAB. SHE WOULD LIKE TO DO INPATIENT REHAB AT [facility], THERE IS ONE STEP TO ENTER IN HER HOME. HER SON WILL BE THE ONE TO TAKE HER HOME. SHE HAS A BEDSIDE COMMODE, WALKER (ROLLATOR) AND NEBULIZER AT HOME. SHE WILL NEED A STANDARD WALKER AT DISCHARGE. CM WILL CONTINUE TO FOLLOW AND ASSSIT WITH DC PLANNING Manager Product: Rachana Hudson DCPIA - Discharge Planning Initial Assessment Updated by [email or web address]: Rachana Hudson on 02/06/18 2:24 pm * Is the patient Alert and Oriented? Yes * How many steps to enter\exit or inside your home? * PCP MICHAEL * Pharmacy [facility] [address] * Preadmission Environment Home Alone * ADLs Independent * Equipment Bedside Commode Nebulizer Rolling Walker * List name and contact numbers for known caregivers / representatives who currently or will assist patient after discharge: DARWIN RODRIGUEZ (SON) [phone] * Verbal permission to speak to the caregivers and representatives has been obtained from the patient. Yes * Community resources currently utilized None * Additional services required to return to the preadmission environment? Yes * Can the patient safely return to the preadmission environment? No * Has this patient been hospitalized within the prior 30 days at any hospital? No Coverage Notice Reviewer: [id number] - Rachana Hudson Notice Issued Date-Time: 02/09/2018 12:00 Notice Type: IM Discharge Notice Notice Delivered To: Patient Relationship to Patient: Party Demonstrator Name: Delivery Method: HAND - Hand Delivered Sarah Days: Prior Verbal Notification: Recipient Understood Notice: Yes Recipient Signature: Yes Med Rec Note Co-signed by Attending: Coverage Notice Comment: Last DP export: 02/09/18 11:08 Patient Name: VICKY RODRIGUEZ Page 50639 at 0924 All edits/amendments must be made on the electronic document DICTATION DATE: 02/12/18923 SENIOR SPEECH PATHOLOGIST: LEONARDO 02/12/18923 RPT#: [id number] DC DATE:02/09/18 STATUS: DIS IN [facility] [address] [place] [address] END OF REPORT
--- NOTE | ~2018-01-28 | OP ---
PATIENT NAME: VICKY RODRIGUEZ MEDICAL RECORD: [id number] :[birth year] LOCATION:[facility] ADMISSION DATE:02/05/18 SURGEON: GARCIA AMAYA MD DATE OF OPERATION: 02/05/2018 PREOPERATIVE DIAGNOSIS: Degenerative arthritis of the right knee. POSTOPERATIVE DIAGNOSIS: Degenerative arthritis of the right knee. PROCEDURE: Right total knee arthroplasty. SURGEON: Garcia Amaya MD SAMPLE SEWER: ERLIN Fitzpatrick INTRAOPERATIVE COMPLICATIONS: None. SUMMARY OF PATHOLOGIC FINDINGS: The patient had extreme osteoarthritis tricompartmentally worse on the medial side consistent with her varus deformity. IMPLANTS USED: Nick Triathlon total knee arthroplasty - cemented, size 4 distal femur, size 4 tibial baseplate, size 11 polyethylene insert. OPERATIVE SUMMARY IN DETAIL: After obtaining the appropriate preoperative orthopedic surgery consent as well as anesthetic consultation, evaluation, and clearance, the patient was brought to the operating room and placed on the operating table in the supine position. After general laryngeal mask was administered, tourniquet was placed about the proximal aspect of the right lower extremity. The right lower extremity was then prepped and draped in routine sterile fashion. The leg was elevated, exsanguinated, and tourniquet was inflated to 350 mmHg. Routine midline incision was taken down for a paramedian approach, then followed by eversion of the patella and after eversion of the patella, the anterior fat pad was taken out. The approach was done by and large by law office assistant Richar Lucas. At this point, intramedullary guide hole was created for distal femoral cut. Distal femoral cut was made. The proximal tibia was exposed in its entirety. Soft tissue excision was done in the usual fashion. Intramedullary guide hole was then created for the tibia and the proximal tibia cut was made using intramedullary guidance. Appropriate measurements were taken and chamfer cuts were made on the femur. Having completed the femoral chamfer cuts and removing all osteophytes, the trials corresponding to the above-mentioned final implants were put into place and taken through range of motion and found to be stable in all planes. Having completed this, final distal femoral and proximal tibial preparations were made. This was then followed by removal of the trial components. The arthritic surface of the patella was excised and final preparations for cemented patella were made. A size 31 patella was used. Having completed this, all trials were removed. The wound was irrigated in pulsatile lavage fashion. Having completed this, the bone ends were exposed and dried. The components were then cemented in place. All excess cement was removed. After the cement was allowed to harden, the knee was taken through range of motion and found to be stable in all planes with good patellar tracking. The wound was then closed by law office assistant, Richar Lucas, using #2 Ethibond, followed by #1 Vicryl, 2-0 Vicryl and skin elma. Sterile dressings were applied. The patient was awakened and taken to recovery room in stable condition. All final needle and sponge counts were correct. OPERATIVE REPORT [id number] VICKY RODRIGUEZ TRANSINT:[id number] Voice Confirmation ID: [id number] DOCUMENT ID: [id number] JOSE LUIS [place]IVER, GARCIA NARAYANAN at 1136 CC: [id number] DICTATION DATE: 02/05/18916 BARBER SHOP OPERATOR: 02/05/18 0938 [facility] [place] [id number] [place] [id number]
--- NOTE | ~2018-01-28 | MORECARE ---
CASE MANAGEMENT DISCHARGE SUMMARY PATIENT: VICKY RODRIGUEZ UNIT: [id number] ADM DATE: 02/05/18 AGE: 77 : 38 SEX: F ROOM/BED: D.2216 AUTHOR: TREVIN KAUFMAN PHYSICIAN: REFERRING PHYSICIAN: GARCIA AMAYA MD DATE OF SERVICE: 02/06/18 Discharge Plan Patient Name: VICKY RODRIGUEZ Facility: [facility]:[place] : 1940 Planned Disposition: Inpatient Rehab Anticipated Discharge Date: Discharge Date: Expected LOS: Initial Reviewer: [id number] Initial Review Date: 02/05/2018 Generated: 02/06/18 3:35 pm Comments DCP- Discharge Planning Updated by [id number]: Rachana Hudson on 02/06/18 1:[address] Patient Name: VICKY RODRIGUEZ Admission Status: Elective Accout number: [id number] Admission Date: 02-05-2018 : 1940 Admission Diagnosis: Attending: GARCIA AMAYA Current LOS: 1 Anticipated DC Date: Planned Disposition: Inpatient Rehab Primary Insurance: MEDICARE A & B Discharge Planning Comments: CM MET WITH PATIENT TO ASSESS DISCHARGE PLANNING NEEDS. PATIENT LIVES INDEPENDENTLY AT HOME ALONE WHERE SHE PLANS ON RETURNING TO AFTER REHAB. SHE WOULD LIKE TO DO INPATIENT REHAB AT [facility], THERE IS ONE STEP TO ENTER IN HER HOME. HER SON WILL BE THE ONE TO TAKE HER HOME. SHE HAS A BEDSIDE COMMODE, WALKER (ROLLATOR) AND NEBULIZER AT HOME. SHE WILL NEED A STANDARD WALKER AT DISCHARGE. CM WILL CONTINUE TO FOLLOW AND ASSSIT WITH DC PLANNING Pipe Blanks Cut Off Saw Operator: Rachana Hudson DCPIA - Discharge Planning Initial Assessment Updated by [email or web address]: Rachana Hudson on 02/06/18 2:24 pm * Is the patient Alert and Oriented? Yes * How many steps to enter\exit or inside your home? * PCP MICHAEL * Pharmacy [facility] [address] * Preadmission Environment Home Alone * ADLs Independent * Equipment Bedside Commode Nebulizer Rolling Walker * List name and contact numbers for known caregivers / representatives who currently or will assist patient after discharge: DARWIN RODRIGUEZ (SON) [phone] * Verbal permission to speak to the caregivers and representatives has been obtained from the patient. Yes * Community resources currently utilized None * Additional services required to return to the preadmission environment? Yes * Can the patient safely return to the preadmission environment? No * Has this patient been hospitalized within the prior 30 days at any hospital? No Last DP export: 02/06/18 1:22 p Patient Name: VICKY RODRIGUEZ Page [id number] at 1435 All edits/amendments must be made on the electronic document DICTATION DATE: 02/06/18 1435 MEMBERSHIP COORDINATOR: LEONARDO 02/06/18 1435 RPT#: [id number] DC DATE: STATUS: ADM IN [facility] [address] [place] [address] END OF REPORT
--- NOTE | ~2018-01-28 | MORECARE ---
CASE MANAGEMENT DISCHARGE SUMMARY PATIENT: VICKY RODRIGUEZ UNIT: [id number] ADM DATE: 02/05/18 AGE: 77 : 38 SEX: F ROOM/BED: D.2216 AUTHOR: TREVIN KAUFMAN PHYSICIAN: REFERRING PHYSICIAN: GARCIA AMAYA MD DATE OF SERVICE: 02/06/18 Discharge Plan Patient Name: VICKY RODRIGUEZ Facility: [facility]:[place] : 1940 Planned Disposition: Inpatient Rehab Anticipated Discharge Date: Discharge Date: Expected LOS: Initial Reviewer: [email or web address] Initial Review Date: 02/05/2018 Generated: 02/06/18 3:22 pm Patient Name: VICKY RODRIGUEZ Page [phone] at 1422 All edits/amendments must be made on the electronic document DICTATION DATE: 02/06/18 142 ROOM WORKER: LEONARDO 02/06/18 142 RPT#: [id number] DC DATE: STATUS: ADM IN [facility] [address] [place] [address] END OF REPORT
--- NOTE | ~2018-01-28 | MORECARE ---
CASE MANAGEMENT DISCHARGE SUMMARY PATIENT: VICKY RODRIGUEZ UNIT: [id number] ADM DATE: 02/05/18 AGE: 77 : 38 SEX: F ROOM/BED: D.2216 AUTHOR: TREVIN KAUFMAN PHYSICIAN: REFERRING PHYSICIAN: GARCIA AMAYA MD DATE OF SERVICE: 02/09/18 Discharge Plan Patient Name: VICKY RODRIGUEZ Facility: [facility]:[place] : 1940 Planned Disposition: Inpatient Rehab Anticipated Discharge Date: Discharge Date: Expected LOS: Initial Reviewer: [email or web address] Initial Review Date: 02/05/2018 Generated: 02/09/18 1:08 pm Comments DCP- Discharge Planning Updated by [id number]: Rachana Hudson on 02/09/18 11:[address] Patient Name: VICKY RODRIGUEZ Encounter No: [id number] : 1940 Primary Insurance: MEDICARE A & B Anticipated DC Date: Planned Disposition: Inpatient Rehab External Planned Provider: : DCP follow-up note: Patient and family in agreement with discharge plan. IMM served and explained. She will be discharging to inpatient rehab today. No changes to plan. Case management will follow and assist as needed. Rachana Hudson DCP- Discharge Planning Updated by [id number]: Rachana Hudson on 02/06/18 1:[address] Patient Name: VICKY RODRIGUEZ Admission Status: Elective Accout number: [id number] Admission Date: 02-05-2018 : 1940 Admission Diagnosis: Attending: GARCIA AMAYA Current LOS: 1 Anticipated DC Date: Planned Disposition: Inpatient Rehab Primary Insurance: MEDICARE A & B Discharge Planning Comments: CM MET WITH PATIENT TO ASSESS DISCHARGE PLANNING NEEDS. PATIENT LIVES INDEPENDENTLY AT HOME ALONE WHERE SHE PLANS ON RETURNING TO AFTER REHAB. SHE WOULD LIKE TO DO INPATIENT REHAB AT [facility], THERE IS ONE STEP TO ENTER IN HER HOME. HER SON WILL BE THE ONE TO TAKE HER HOME. SHE HAS A BEDSIDE COMMODE, WALKER (ROLLATOR) AND NEBULIZER AT HOME. SHE WILL NEED A STANDARD WALKER AT DISCHARGE. CM WILL CONTINUE TO FOLLOW AND ASSSIT WITH DC PLANNING Ict Teacher: Rachana Hudson DCPIA - Discharge Planning Initial Assessment Updated by [email or web address]: Rachana Hudson on 02/06/18 2:24 pm * Is the patient Alert and Oriented? Yes * How many steps to enter\exit or inside your home? * PCP MICHAEL * [facility]acy [facility] [address] * Preadmission Environment Home Alone * ADLs Independent * Equipment Bedside Commode Nebulizer Rolling Walker * List name and contact numbers for known caregivers / representatives who currently or will assist patient after discharge: DARWIN RODRIGUEZ (SON) [phone] * Verbal permission to speak to the caregivers and representatives has been obtained from the patient. Yes * Community resources currently utilized None * Additional services required to return to the preadmission environment? Yes * Can the patient safely return to the preadmission environment? No * Has this patient been hospitalized within the prior 30 days at any hospital? No Coverage Notice Reviewer: [id number] - Rachana Hudson Notice Issued Date-Time: 02/09/2018 12:00 Notice Type: IM Discharge Notice Notice Delivered To: Patient Relationship to Patient: Hairspring Fabrication Supervisor Name: Delivery Method: HAND - Hand Delivered Sarah Days: Prior Verbal Notification: Recipient Understood Notice: Yes Recipient Signature: Yes Med Rec Note Co-signed by Attending: Coverage Notice Comment: Last DP export: 02/06/18 1:35 p Patient Name: VICKY RODRIGUEZ Page [phone] at 1208 All edits/amendments must be made on the electronic document DICTATION DATE: 02/09/181206 WATER MAIN PIPE LAYER: LEONARDO 02/09/181206 RPT#: [id number] DC DATE: STATUS: ADM IN [facility] [address] [place] [address] END OF REPORT
[2018-01-28 11:00] LABS: BASOPHILS 0.4 % (0-2); EOSINOPHILS 3.1 % (0-7); HEMATOCRIT 44.1 % (36.0-48.0); HEMOGLOBIN 15.3 g/dL (12-16); IMMATURE GRANULOCYTES 0.3 % (0-5); LYMPHOCYTES 15.9 % (15-50); MCH 32.3 pg (26.0-34.0); MCHC 34.7 g/dL (31.0-37.0); MEAN PLATELET VOLUME 9.7 fL (7.4-10.4); MONOCYTES 8.9 % (2-11); NEUTROPHILS 71.4 % (40-80); PLATELET COUNT 283 10x3/uL (130-400); RBC 4.74 10x6/uL (4.00-5.40); RDW 14.2 % (11.5-14.5); WBC 11.1 10x3/uL (4.8-10.8)
[2018-01-28 11:10] LABS: ANION GAP 14.2 mmol/L (8-16); CALCIUM 9.2 mg/dL (8.5-10.1); CARBON DIOXIDE 27.1 mmol/L (21.0-32.0); CREATININE - SERUM 0.9 mg/dL (0.6-1.3); POTASSIUM - SERUM 4.3 mmol/L (3.5-5.1)
[2018-01-28 11:25] LABS: APTT 25.8 SECONDS (22.8-39.4); INR 0.94 (0.85-1.17); PROTIME 12.2 SECONDS (11.6-15.0)
[2018-01-28 11:32] LABS: APPEARANCE CLEAR (CLEAR); BACTERIA FEW /hpf (NONE SEEN); BILIRUBIN NEGATIVE (NEGATIVE); COLOR YELLOW (YELLOW); EPITHELIAL CELLS OCC /hpf (0-5); GLUCOSE NEGATIVE (NEGATIVE); KETONE NEGATIVE (NEGATIVE); MUCUS <1+ /lpf (NONE SEEN); NITRITE NEGATIVE (NEGATIVE); PROTEIN 1+ mg/dL (NEGATIVE); RED CELLS - URINE RARE /hpf (0-5); SPECIFIC GRAVITY 1.015 (1.005-1.020); UROBILINOGEN NORMAL (NORMAL); WHITE CELLS - URINE RARE /hpf (0-5)
[2018-02-05 06:14] VITALS: BP 171/75; BMI 29.3
[2018-02-05 16:19] VITALS: BP 136/76
[2018-02-05 19:33] LABS: APPEARANCE CLEAR (CLEAR); BILIRUBIN NEGATIVE (NEGATIVE); COLOR STRAW (YELLOW); GLUCOSE NEGATIVE (NEGATIVE); KETONE NEGATIVE (NEGATIVE); NITRITE NEGATIVE (NEGATIVE); PROTEIN NEGATIVE (NEGATIVE); UROBILINOGEN NORMAL (NORMAL)
[2018-02-05 20:57] VITALS: BP 141/62
[2018-02-06 03:42] VITALS: BP 141/62; Ht 152.4 cm; Wt 68.2 kg
[2018-02-06 04:56] VITALS: BP 146/55
[2018-02-06 06:49] LABS: HEMATOCRIT 35.3 % (36.0-48.0); HEMOGLOBIN 11.8 g/dL (12-16); MCH 31.2 pg (26.0-34.0); MCHC 33.4 g/dL (31.0-37.0); MCV 93.4 fL (80.0-100.0); MEAN PLATELET VOLUME 10.3 fL (7.4-10.4); RBC 3.78 10x6/uL (4.00-5.40); RDW 14.1 % (11.5-14.5); WBC 9.5 10x3/uL (4.8-10.8)
[2018-02-06 08:18] VITALS: BP 156/61
[2018-02-06 12:47] VITALS: BP 176/69
[2018-02-06 16:57] VITALS: BP 175/72
[2018-02-06 19:44] VITALS: BP 177/67
[2018-02-07 04:45] VITALS: BP 141/57
[2018-02-07 06:14] LABS: HEMATOCRIT 32.8 % (36.0-48.0); HEMOGLOBIN 10.8 g/dL (12-16); MCH 30.9 pg (26.0-34.0); MCHC 32.9 g/dL (31.0-37.0); MCV 93.7 fL (80.0-100.0); MEAN PLATELET VOLUME 10.5 fL (7.4-10.4); RBC 3.5 10x6/uL (4.00-5.40); WBC 11.8 10x3/uL (4.8-10.8)
[2018-02-07 12:28] VITALS: BP 142/61
[2018-02-07 16:28] VITALS: BP 130/61
[2018-02-07 20:06] VITALS: BP 164/63
[2018-02-08 04:26] VITALS: BP 140/64
[2018-02-08 09:47] VITALS: BP 149/59
[2018-02-08 13:46] VITALS: BP 167/58
[2018-02-08 16:47] VITALS: BP 158/58
[2018-02-08 21:29] VITALS: BP 170/69
[2018-02-09 05:02] VITALS: BP 112/51
[2018-02-09] MEDS ORDERED: ELIQUIS2.5 MG PO (07:59)
[2018-02-09] MEDS ORDERED: Percocet-10 PO (08:00)
[2018-02-09] MEDS ORDERED: DILAUDID2 MG PO (08:00)
[2018-02-09 08:44] VITALS: BP 150/56
[2018-02-09 12:20] VITALS: BP 143/61
[2018-02-09 16:39] VITALS: BP 149/59
== END 2018-02-09 19:25 | DRG 470 ==
LOC: D.SDCHOLD 02-05 05:10 → D.MS 02-05 11:00
PROVIDERS: Orthopaedic Surgery
PROC: 0SRC0JZ Replacement of Right Knee Joint with Synthetic Substitute, Open Approach (ICD-10-PCS; principal; 2018-02-05 07:30)
DX: M17.11 Unilateral primary osteoarthritis, right knee (principal); E11.9 Type 2 diabetes mellitus without complications; J44.9 Chronic obstructive pulmonary disease, unspecified

== ENCOUNTER 2018-02-09 20:02 | Inpatient (IN) | payer MEDICARE ==
[~2018-02-09] VITALS: Ht 152.4 cm; Wt 68.0 kg
--- NOTE | ~2018-02-09 | RHP ---
PATIENT: VICKY RODRIGUEZ MEDICAL RECORD: [id number] ACCOUNT: [id number] [facility] [birth year] ADMISSION DATE: 02/09/18 REHABILITATION HISTORY AND PHYSICAL EXAMINATION POST ADMISSION PHYSICIAN EXAMINATION POST-ADMISSION PHYSICAL EXAMINATION AND HISTORY AND PHYSICAL DATE OF ADMISSION: 02/09/2018 ADMITTING DIAGNOSIS: Debility secondary to postop complications of a right total knee HISTORY OF PRESENT ILLNESS: The patient admitted to the inpatient rehab with debility secondary to postop complications of a right total knee. She is 77-year-old female patient with a running and osteoarthritis. She underwent a right total knee replacement on 02/05/[address] Hernandez. She has some postop complications including increased, pain requiring extended use of SOFTWARE SYSTEMS ARCHITECT, impaired mobility, increased oxygen use, acute blood loss anemia, self-care deficits. She had elevated blood sugars and urinary incontinence. Had elevations in her white count and also her temperature. These were all barriers to discharge home at this time. She has got a past medical history of hypertension, COPD, tobacco use, arthritis, chronic back pain, scoliosis, menopause, hyperlipidemia. She lives at home, was independent with her ADLs and moderately independent with mobility and use of a rollator prior to this hospitalization. She and her family plan for her to return home as close to her level of functioning as possible after her acute inpatient rehab stay. COMORBIDITIES: In this patient include osteoarthritis of her knee, pain, postop blood loss anemia, spinal stenosis, impaired mobility, weakness, debility, self-care deficits, home O2 use, tobacco use, arthritis, scoliosis, hyperlipidemia, chronic back pain. PAST MEDICAL HISTORY: Significant for diabetes, hypertension, COPD, home O2 dependence, tobacco use, arthritis, chronic back pain, eczema, menopause, hyperlipidemia. PAST SURGICAL HISTORY: Includes tubal ligation. She has had a cholecystectomy, , hernia repair and carpal tunnel surgery. ALLERGIES: No known drug allergies. CURRENT MEDICATIONS: Include DuoNeb updrafts 3 cc b.i.d., Welchol daily, Tenormin 100 mg daily, MiraLax 17 grams once daily, Percocet 1 tab q.4 hours p.r.n., metformin 1000 mg q.h.s., Zestril 20 mg q.h.s., Dilaudid 4 mg q.4 hours p.r.n., hydrochlorothiazide 25 mg q.h.s., Glucotrol 5 mg q.h.s., Brovana 15 mcg b.i.d., Eliquis 2.5 mg b.i.d., and Norvasc 10 mg q.h.s. HABITS: No current alcohol or tobacco use at this time, but she does have a history of tobacco use. FAMILY HISTORY: Noncontributory. SOCIAL HISTORY: The patient hopes to return back home and get back to her prior level of functioning. HISTORY AND PHYSICAL [id number] VICKY RODRIGUEZ REVIEW OF SYSTEMS: GENERAL: Denies any weakness and fatigue. HEENT: Denies cold, cough, or congestion. CARDIOVASCULAR: Denies chest pain. PHYSICAL EXAMINATION: VITAL SIGNS: Stable, afebrile. GENERAL: A well-developed female, in no acute distress, alert upon exam. HEENT: Normocephalic and atraumatic. Mucosa moist. NECK: Supple. No lymphadenopathy. LUNGS: Clear at this time. HEART: Regular rate and rhythm. ABDOMEN: Benign. EXTREMITIES: No clubbing, cyanosis or edema. Postop swelling appears to be normal at this time. NEUROLOGIC: She seems intact. LABORATORY DATA: Her white count is 9.5, H&H of 11 and 33, and platelet count was noted to be 267. Her sodium is 135, potassium 3.9, BUN and creatinine of 13 and 0.8 and blood sugar is noted to be 96. ASSESSMENT: This is a 77-year-old female patient admitted to rehab with a working diagnosis of debility secondary to total knee replacement. The patient has potential to make improvement. We instituted the following multidisciplinary therapies include, but not limited to physical, occupational, respiratory, speech, nutritional services, prosthetics and orthotics. Given her complex medical condition and risk for more complications, rehabilitation certain of daily level of care such as senior care facility. PLAN: 1. Ad[facility] therapy to include the following disciplines: A. Physical therapy to improve gait, all transfer skills and bed mobility to a modified independent level. B. Occupational therapy to improve activities of daily living to a modified. C. Case management to assist with discharge planning and placement options. D. Nutrition to assist with nutritional needs. E. Rehabilitation nursing to assist in monitoring the patient's underlying medical conditions and to assist with any type of bowel or bladder management. 2. The patient's current medication and medical care will be continued. 3. The patient will be placed on standard fall precautions. 4. We will continue Eliquis for DVT prophylaxis. 5. I am going to add some omeprazole for PPI prophylaxis. 6. I am going to follow up in the a.m. and discuss with care team in staff meeting at this time. TRANSINT:[id number] Voice Confirmation ID: [id number] DOCUMENT ID: [id number] STEFAN notes whether there has been none or any medical/functional change since admission: - No change since pre-admission screen. HISTORY AND PHYSICAL [id number] VICKY RODRIGUEZ attests patient continues to be appropriate for IRF: - Continues to be appropriate for IRF. DARLENE MILES MD at 1854 CC: [id number] DICTATION DATE: 02/10/18 0853 SPECIALIST PHYSICIANS: 02/10/18 1002 ADM IN [place] [id number] [place] [id number]
[~2018-02-09 20:02] MED LIST changes: +DILAUDID2 MG PO; +ELIQUIS2.5 MG PO; +Percocet-10 PO
[2018-02-09 23:08] VITALS: BMI 29.3
[2018-02-10 03:19] VITALS: BP 139/58
[2018-02-10 07:01] LABS: ANION GAP 13.5 mmol/L (8-16); BASOPHILS 0.6 % (0-2); CALCIUM 8.4 mg/dL (8.5-10.1); CARBON DIOXIDE 26.4 mmol/L (21.0-32.0); CREATININE - SERUM 0.8 mg/dL (0.6-1.3); EOSINOPHILS 6.3 % (0-7); HEMATOCRIT 33.1 % (36.0-48.0); HEMOGLOBIN 11.2 g/dL (12-16); IMMATURE GRANULOCYTES 0.5 % (0-5); LYMPHOCYTES 12.9 % (15-50); MCH 31.5 pg (26.0-34.0); MCHC 33.8 g/dL (31.0-37.0); MCV 93.2 fL (80.0-100.0); MEAN PLATELET VOLUME 9.7 fL (7.4-10.4); MONOCYTES 11.6 % (2-11); NEUTROPHILS 68.1 % (40-80); PLATELET COUNT 267 10x3/uL (130-400); POTASSIUM - SERUM 3.9 mmol/L (3.5-5.1); RBC 3.55 10x6/uL (4.00-5.40); RDW 13.8 % (11.5-14.5); WBC 9.5 10x3/uL (4.8-10.8)
[2018-02-10 08:14] VITALS: BP 125/48
[2018-02-10 13:27] VITALS: Ht 152.4 cm; Wt 68.0 kg
[2018-02-10 19:00] VITALS: BP 169/56
[2018-02-11 06:17] LABS: BASOPHILS 0.3 % (0-2); EOSINOPHILS 4.5 % (0-7); HEMATOCRIT 31.5 % (36.0-48.0); HEMOGLOBIN 10.7 g/dL (12-16); IMMATURE GRANULOCYTES 0.4 % (0-5); LYMPHOCYTES 10.6 % (15-50); MCH 31.4 pg (26.0-34.0); MCV 92.4 fL (80.0-100.0); MEAN PLATELET VOLUME 10.3 fL (7.4-10.4); MONOCYTES 12.3 % (2-11); NEUTROPHILS 71.9 % (40-80); PLATELET COUNT 301 10x3/uL (130-400); RBC 3.41 10x6/uL (4.00-5.40); RDW 13.9 % (11.5-14.5)
[2018-02-11 06:30] LABS: CALC OSMOLALITY 266 mosm/kg (275-300); CALCIUM 8.6 mg/dL (8.5-10.1); CARBON DIOXIDE 26.3 mmol/L (21.0-32.0); CHLORIDE - SERUM 98 mmol/L (98-107); CREATININE - SERUM 0.7 mg/dL (0.6-1.3); GLUCOSE 103 mg/dL (74-106); POTASSIUM - SERUM 3.5 mmol/L (3.5-5.1); SODIUM 134 mmol/L (136-145); eGFR NON AFRICAN AMERICAN 85 mL/min (90-120)
[2018-02-11 06:33] LABS: UREA NITROGEN 9 mg/dL (7-18)
[2018-02-11 08:15] VITALS: BP 143/52
[2018-02-11 19:00] VITALS: BP 156/52
[2018-02-12 08:06] VITALS: BP 136/48
[2018-02-12 19:09] VITALS: BP 131/47
[2018-02-13 07:27] LABS: BASOPHILS 0.4 % (0-2); EOSINOPHILS 6.4 % (0-7); HEMATOCRIT 30.4 % (36.0-48.0); HEMOGLOBIN 10.2 g/dL (12-16); IMMATURE GRANULOCYTES 0.7 % (0-5); LYMPHOCYTES 17.3 % (15-50); MCH 31.2 pg (26.0-34.0); MCHC 33.6 g/dL (31.0-37.0); MEAN PLATELET VOLUME 9.6 fL (7.4-10.4); MONOCYTES 10.2 % (2-11); PLATELET COUNT 287 10x3/uL (130-400); RBC 3.27 10x6/uL (4.00-5.40); RDW 14.2 % (11.5-14.5); WBC 9.1 10x3/uL (4.8-10.8)
[2018-02-13 07:38] LABS: ANION GAP 12.2 mmol/L (8-16); CALCIUM 8.5 mg/dL (8.5-10.1); CARBON DIOXIDE 25.9 mmol/L (21.0-32.0); POTASSIUM - SERUM 4.1 mmol/L (3.5-5.1)
[2018-02-13 08:19] VITALS: BP 171/71
[2018-02-13 08:22] VITALS: BP 138/42
[2018-02-13 19:00] VITALS: BP 115/50
[2018-02-14 08:22] VITALS: BP 151/61
[2018-02-14] MEDS ORDERED: DILAUDID2 MG PO (12:10)
[2018-02-14 20:15] VITALS: BP 121/36
[2018-02-15 08:00] VITALS: BP 140/52
== END 2018-02-15 10:45 | disposition home health service (06) | DRG 948 ==
LOC: D.REHAB 20:02
PROVIDERS: Emergency Medicine
DX: R53.81 Other malaise (principal); D62 Acute posthemorrhagic anemia; D64.9 Anemia, unspecified; M19.90 Unspecified osteoarthritis, unspecified site; M48.00 Spinal stenosis, site unspecified; R53.1 Weakness; F17.200 Nicotine dependence, unspecified, uncomplicated; M41.9 Scoliosis, unspecified; E78.5 Hyperlipidemia, unspecified; E11.9 Type 2 diabetes mellitus without complications; I10 Essential (primary) hypertension; J44.9 Chronic obstructive pulmonary disease, unspecified; Z99.81 Dependence on supplemental oxygen; Z96.651 Presence of right artificial knee joint; M17.11 Unilateral primary osteoarthritis, right knee

== ENCOUNTER → 2018-02-26 15:52 | Outpatient (CLI) | payer MEDICARE ==
[2018-02-10 13:27] VITALS: BMI 29.2
== END | disposition home or self-care (01) ==
LOC: D.LABREF 15:52
DX: M25.561 Pain in right knee (principal)

== ENCOUNTER → 2018-03-02 17:56 | Outpatient (CLI) | payer MEDICARE ==
[2018-02-10 13:27] VITALS: BMI 29.2
[2018-03-02 18:46] LABS: BASOPHILS 0.7 % (0-2); EOSINOPHILS 4.7 % (0-7); HEMATOCRIT 45.8 % (36.0-48.0); HEMOGLOBIN 13.2 g/dL (12-16); IMMATURE GRANULOCYTES 0.1 % (0-5); LYMPHOCYTES 20.5 % (15-50); MCHC 28.8 g/dL (31.0-37.0); MCV 111.2 fL (80.0-100.0); MEAN PLATELET VOLUME 11.5 fL (7.4-10.4); MONOCYTES 3.5 % (2-11); NEUTROPHILS 70.5 % (40-80); RBC 4.12 10x6/uL (4.00-5.40); RDW 15.7 % (11.5-14.5); WBC 8.8 10x3/uL (4.8-10.8)
[2018-03-02 19:05] LABS: PLATELET COUNT 382 10x3/uL (130-400)
[2018-03-02 20:08] LABS: ERYTHROCYTE SEDIMENTATION RATE 0 mm/hr (0-30)
== END | disposition home or self-care (01) ==
LOC: D.LABREF 17:56
PROVIDERS: Orthopaedic Surgery
DX: M25.561 Pain in right knee (principal)

== ENCOUNTER → 2018-06-17 14:02 | Outpatient (CLI) | payer MEDICARE ==
[2018-02-10 13:27] VITALS: BMI 29.2
== END | disposition home or self-care (01) ==
LOC: D.RAD 03-18 10:00 → D.RT 03-18 10:00
PROVIDERS: ATTEND Internal Medicine Pulmonary Disease
DX: J44.9 Chronic obstructive pulmonary disease, unspecified (principal)

== ENCOUNTER 2018-10-29 06:10 | Day surgery (SDC) | payer MEDICARE ==
[2018-10-27 10:36] LABS: HEMATOCRIT 46.6 % (36.0-48.0); HEMOGLOBIN 15.9 g/dL (12-16); LYMPHOCYTES 16.5 % (15-50); MCH 31.9 pg (26.0-34.0); MCHC 34.1 g/dL (31.0-37.0); MCV 93.4 fL (80.0-100.0); MEAN PLATELET VOLUME 9.3 fL (7.4-10.4); PLATELET COUNT 241 10x3/uL (130-400); RBC 4.99 10x6/uL (4.00-5.40); RDW 14.5 % (11.5-14.5); WBC 9.7 10x3/uL (4.8-10.8)
[2018-10-27 10:45] LABS: ANION GAP 13.4 mmol/L (8-16); CALCIUM 9.1 mg/dL (8.5-10.1); CARBON DIOXIDE 27.2 mmol/L (21.0-32.0); CREATININE - SERUM 0.9 mg/dL (0.6-1.3); POTASSIUM - SERUM 4.6 mmol/L (3.5-5.1)
[~2018-10-29] VITALS: Ht 152.4 cm; Wt 69.9 kg
[~2018-10-29 06:10] MED LIST changes: +HYDROCODON-ACE1 EA10 PO
[2018-10-29 06:58] VITALS: BP 158/59; Ht 152.4 cm; Wt 69.9 kg
[2018-10-29] MEDS ORDERED: HYDROCODON-ACE1 EA10 PO (08:10)
--- NOTE | 2018-10-29 09:41 | OP ---
PATIENT NAME: VICKY RODRIGUEZ MEDICAL RECORD: [id number] :36 LOCATION:[facility] ADMISSION DATE: SURGEON: GARCIA AMAYA MD DATE OF OPERATION: 10/29/2018 PREOPERATIVE DIAGNOSIS: Lateral meniscus tear of the left knee. POSTOPERATIVE DIAGNOSIS: Lateral meniscus tear of the left knee. PROCEDURE: Arthroscopic partial lateral meniscectomy. SURGEON: Garcia Amaya MD [place]: DOROTHY Fitzpatrick INTRAOPERATIVE COMPLICATIONS: None. 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 The posterior lateral tear was complex and resulted in the need for subtotal meniscectomy. Medial compartment was relatively okay with areas of grade II and III chondromalacia. No meniscal pathology was seen. Patellofemoral joint was also likewise in good overall condition. The patient did have substantial amount of synovitis. OPERATIVE SUMMARY IN DETAIL: After obtaining the appropriate preoperative orthopedic surgery consent as well as anesthetic consultation, evaluation and clearance, the patient was brought to the operating room and placed on the operating table in supine position. After adequate general laryngeal mask airway was administered, tourniquet was placed on the proximal aspect of left lower extremity. Left lower extremity was then prepped and draped in routine sterile fashion. The leg was elevated and exsanguinated, tourniquet inflated to 350 mmHg. At this time, the appropriate timeout was taken and agreed upon by all in the operative suite. Inferolateral portal was established followed by superomedial portal and inferomedial portal. Diagnostic arthroscopy revealed the above findings. A combination of full radius arthroscopic resectors along with a meniscotome was utilized to debride the lateral meniscus from the medial aspect of the root, out to the proximal at 4 o'clock position. Photographs were taken intraoperatively. The torn meniscus as well as the post-meniscectomy along with grade IV chondromalacia. Having completed this, arthroscopy portals were closed in routine interrupted fashion with 4-0 Prolene done by DOROTHY Fitzpatrick. Knee was insufflated with 30 cc of 0.25% Marcaine with epinephrine, 80 mg of Depo-Medrol. Arthroscopy portals were covered. Sterile dressings were applied. Tourniquet was deflated. The patient was awakened and taken to recovery room in stable condition. All final needle and sponge counts were correct. TRANSINT:[id number] Voice Confirmation ID: [id number] DOCUMENT ID: [id number] OPERATIVE REPORT [id number] VICKY RODRIGUEZ MD, GARCIA NARAYANAN at 0941 CC: [id number] DICTATION DATE: 10/29/18816 TANBARK LABORER: 10/29/18 0916 [place] [id number]
--- NOTE | 2018-10-29 09:55 | NUR ---
PIV DC'D WITH TIP INTACT. PATIENT WALKING AROUND ROOM WITH WALKER. DISCHARGE INSTRUCTIONS REVIEWED WITH PATIENT. AWAITING PATIENT'S SON TO ARRIVE TO PROVIDE TRANSPORTATION
--- NOTE | 2018-10-29 10:25 | NUR ---
PATIENT'S SON ARRIVES, PATIENT SITTING UP IN BED WITH LEG ELEVATED. PATIENT READY FOR DISCHARGE, DISCHARGED HOME VIA WHEELCHAIR TO PRIVATE VEHICLE WITH SON
== END 2018-10-29 10:25 | disposition home or self-care (01) ==
LOC: D.OPS 06:10 → D.PAN 09:00 → D.OPS 09:00 → D.PAN 12:20 → D.OPS 13:30
PROVIDERS: Anesthesiology; ATTEND Orthopaedic Surgery
DX: S83.272A Complex tear of lateral meniscus, current injury, left knee, initial encounter (principal); X58.XXXA Exposure to other specified factors, initial encounter; Z01.812 Encounter for preprocedural laboratory examination

== ENCOUNTER → 2018-11-04 15:49 | Outpatient (CLI) | payer MEDICARE ==
[2018-10-29 06:58] VITALS: BMI 30.1
== END | disposition home or self-care (01) ==
LOC: D.US 15:49
PROVIDERS: ATTEND Orthopaedic Surgery
DX: M25.462 Effusion, left knee (principal)

== ENCOUNTER → 2019-11-19 13:32 | Outpatient (CLI) | payer MEDICARE ==
[2018-10-29 06:58] VITALS: BMI 30.1
== END | disposition home or self-care (01) ==
LOC: D.US 13:32
PROVIDERS: ATTEND Surgery
DX: I87.323 Chronic venous hypertension (idiopathic) with inflammation of bilateral lower extremity (principal); L03.116 Cellulitis of left lower limb; L03.115 Cellulitis of right lower limb; L97.929 Non-pressure chronic ulcer of unspecified part of left lower leg with unspecified severity; L97.919 Non-pressure chronic ulcer of unspecified part of right lower leg with unspecified severity

== ENCOUNTER → 2019-12-08 14:16 | Outpatient (CLI) | payer MEDICARE ==
[2018-10-29 06:58] VITALS: BMI 30.1
== END | disposition home or self-care (01) ==
LOC: D.US 14:16
PROVIDERS: ATTEND Surgery
DX: M79.661 Pain in right lower leg (principal); M79.662 Pain in left lower leg; I87.303 Chronic venous hypertension (idiopathic) without complications of bilateral lower extremity; I70.213 Atherosclerosis of native arteries of extremities with intermittent claudication, bilateral legs; M79.89 Other specified soft tissue disorders

== ENCOUNTER → 2019-12-17 14:28 | Outpatient (CLI) | payer MEDICARE ==
[2018-10-29 06:58] VITALS: BMI 30.1
[2019-12-17 14:55] LABS: BASOPHILS 0.5 % (0-2); EOSINOPHILS 3.8 % (0-7); HEMATOCRIT 44.4 % (36.0-48.0); HEMOGLOBIN 14.5 g/dL (12-16); IMMATURE GRANULOCYTES 0.5 % (0-5); LYMPHOCYTES 16.9 % (15-50); MCH 31.9 pg (26.0-34.0); MCHC 32.7 g/dL (31.0-37.0); MCV 97.6 fL (80.0-100.0); MEAN PLATELET VOLUME 9.3 fL (7.4-10.4); MONOCYTES 8.4 % (2-11); NEUTROPHILS 69.9 % (40-80); RBC 4.55 10x6/uL (4.00-5.40); RDW 14.1 % (11.5-14.5)
[2019-12-17 14:56] LABS: PLATELET COUNT 297 10x3/uL (130-400)
[2019-12-17 15:17] LABS: ALBUMIN 3.4 g/dL (3.4-5.0); ANION GAP 13.3 mmol/L (8-16); BILIRUBIN - TOTAL 0.36 mg/dL (0.2-1.3); CALCIUM 9.4 mg/dL (8.5-10.1); CARBON DIOXIDE 24.1 mmol/L (21.0-32.0); POTASSIUM - SERUM 4.4 mmol/L (3.5-5.1); PROTEIN - SERUM 7.3 g/dL (6.4-8.2)
[2019-12-17 15:38] LABS: APTT 27.1 SECONDS (22.8-39.4); INR 0.93 (0.85-1.17); PROTIME 12.4 SECONDS (11.6-15.0)
== END | disposition home or self-care (01) ==
LOC: D.LAB 14:28
PROVIDERS: ATTEND Obstetrics & Gynecology
DX: I99.8 Other disorder of circulatory system (principal)

== ENCOUNTER → 2019-12-29 12:33 | Outpatient (CLI) | payer MEDICARE ==
[2018-10-29 06:58] VITALS: BMI 30.1
== END | disposition home or self-care (01) ==
LOC: D.CT 12:33
PROVIDERS: ATTEND Surgery
DX: M79.661 Pain in right lower leg (principal); M79.662 Pain in left lower leg; I70.213 Atherosclerosis of native arteries of extremities with intermittent claudication, bilateral legs